=== PATIENT | female | born 1995 | race Two or more races ===

== ENCOUNTER 2022-11-27 22:27 | Observation (INO) | payer MEDICAID, OTHER ==
[~2022-11-27] VITALS: Ht 165.1 cm; Wt 98.4 kg
[2022-11-27] MEDS ORDERED: NITR-52 PO (23:32)
[2022-11-27 23:39] LABS: Urine Bacteria FEW /hpf (None Seen); Urine Blood Negative /uL (Negative); Urine Clarity Clear (Clear); Urine Color Yellow (Yellow); Urine Mucus FEW (None Seen); Urine Protein, UAD TRACE (Negative); Urine Specific Gravity 1.025 (1.001-1.035); Urine Urobilinogen Normal (Negative); Urine WBC 1 /hpf (0 - 5)
[2022-11-27 23:50] LABS: Amphetamine Screen, Urine Neg (NEGATIVE); Barbiturate Scree,Urine Neg (NEGATIVE); Benzodiazephine Screen, Urine Neg (NEGATIVE); Cannabinoid Screen, Urine Neg (NEGATIVE); Cocaine Screen, Urine Neg (NEGATIVE); Opiate Scree,Urine Neg (NEGATIVE); Phencyclidine Screen, Urine Neg (NEGATIVE)
[2022-11-27 23:58] LABS: Fern Testing Negative
[2022-11-28 00:42] LABS: Alanine Aminotransferase 14 U/L (7-40); Albumin 3.6 g/dL (3.2-4.8); Alkaline Phosphatase 173 U/L (46-116); Anion Gap 8 (5-15); Aspartate Aminotransferase 12 U/L (13-40); Bilirubin, Total 0.5 mg/dL (0.2-1.0); Calcium 8.4 mg/dL (8.5-10.1); Carbon Dioxide 20 mmol/L (20-30); Chloride 110 mmol/L (98-107); Glucose 98 mg/dL (74-106); Potassium 3.7 mmol/L (3.5-5.1); Sodium 138 mmol/L (136-145); Total Protein 6.4 g/dL (5.7-8.2)
[2022-11-28 00:47] LABS: BUN/Creatinine Ratio 10.6 (10.0-20.0); Blood Urea Nitrogen < 5 mg/dL (9-23); INR 0.94 (0.9-1.15); Prothrombin Time 9.9 sec (9.3-11.8)
== END 2022-11-28 01:29 | disposition home or self-care (01) ==
LOC: LDRP 22:27
PROVIDERS: ADMIT Obstetrics & Gynecology; ATTEND Obstetrics & Gynecology
DX: O42.92 Full-term premature rupture of membranes, unspecified as to length of time between rupture and onset of labor (principal); O26.893 Other specified pregnancy related conditions, third trimester; M54.50 Low back pain, unspecified; Z79.899 Other long term (current) drug therapy; Z3A.37 37 weeks gestation of pregnancy; Z98.891 History of uterine scar from previous surgery
CPT/HCPCS: 36415; 59025; 76805; 76818; 80053; 80307; 81001; 81002; 84112; 85610; 85730; 94760; G0378; Q0114

== ENCOUNTER 2022-12-04 09:45 | Observation (INO) | payer MEDICAID ==
[~2022-12-04 09:45] MED LIST: NITR-52 PO
[2022-12-04] MEDS ORDERED: PREN-96 PO (10:52)
[2022-12-04 12:11] LABS: Basophils # (auto) 0 10 ^3/uL (0-0.2); Basophils % (auto) 0.4 % (0.0-2.0); Eosinophils # (auto) 0.1 10 ^3/uL (0-0.8); Eosinophils % (auto) 1.3 % (0.0-7.0); Hematocrit 37.5 % (36.0-46.0); Hemoglobin 12.8 g/dL (12.2-16.2); Lymphocytes # (auto) 1.7 10 ^3/uL (0.4-5.4); Lymphocytes % (auto) 23.3 % (10.0-50.0); Mean Corpuscular Hemoglobin 28.7 pg (28.0-32.0); Mean Corpuscular Hgb Conc. 34.2 g/dL (32.0-36.0); Mean Corpuscular Volume 84.1 fL (80.0-100.0); Monocytes # (auto) 0.4 10 ^3/uL (0-1.3); Monocytes % (auto) 5.6 % (0.0-12.0); Neutrophils % (auto) 69.4 % (37.0-80.0); Nucleated Red Blood Cells % 0.1 %; Red Blood Cells 4.46 10^6/uL (4.0-5.20); Red Cell Distribution Width 13.4 % (11.8-14.3); White Blood Cell 7.3 10^3/uL (4.4-10.8)
[2022-12-07 07:06] LABS: RPR Non Reactive (Non Reactive)
== END 2022-12-04 12:03 | disposition home or self-care (01) ==
LOC: LDRP 10:12
PROVIDERS: ADMIT Obstetrics & Gynecology; ATTEND Obstetrics & Gynecology
DX: O24.410 Gestational diabetes mellitus in pregnancy, diet controlled (principal); Z3A.38 38 weeks gestation of pregnancy
CPT/HCPCS: 36415; 59025; 76818; 81002; 82948; 82962; 83036; 85025; 86592; 94760; G0378

== ENCOUNTER 2022-12-08 11:42 | Observation (INO) | payer MEDICAID ==
[~2022-12-08 11:42] MED LIST changes: +PREN-96 PO
== END 2022-12-08 13:54 | disposition home or self-care (01) ==
LOC: LDRP 12:03 → UNDOADMOB 12:03 → LDRP 12:08 → UNDODISOB 13:54
PROVIDERS: ADMIT Obstetrics & Gynecology; ATTEND Obstetrics & Gynecology
DX: O24.419 Gestational diabetes mellitus in pregnancy, unspecified control (principal); O34.219 Maternal care for unspecified type scar from previous cesarean delivery; Z3A.39 39 weeks gestation of pregnancy
CPT/HCPCS: 59025; 76818; 81002; 82948; 82962; 94760; G0378

== ENCOUNTER 2022-12-12 05:00 | Inpatient (IN) | payer MEDICAID ==
[2022-12-11 11:58] LABS: Basophils # (auto) 0 10 ^3/uL (0-0.2); Basophils % (auto) 0.3 % (0.0-2.0); Eosinophils # (auto) 0 10 ^3/uL (0-0.8); Eosinophils % (auto) 0.7 % (0.0-7.0); Hematocrit 35.7 % (36.0-46.0); Lymphocytes # (auto) 1.5 10 ^3/uL (0.4-5.4); Lymphocytes % (auto) 23.1 % (10.0-50.0); Mean Corpuscular Hemoglobin 28.4 pg (28.0-32.0); Mean Corpuscular Hgb Conc. 33.7 g/dL (32.0-36.0); Mean Corpuscular Volume 84.2 fL (80.0-100.0); Monocytes # (auto) 0.4 10 ^3/uL (0-1.3); Monocytes % (auto) 5.9 % (0.0-12.0); Neutrophils # (auto) 4.6 10 ^3/uL (1.6-8.6); Red Blood Cells 4.24 10^6/uL (4.0-5.20); Red Cell Distribution Width 13.7 % (11.8-14.3); White Blood Cell 6.5 10^3/uL (4.4-10.8)
[2022-12-11 12:17] LABS: INR 0.94 (0.9-1.15); Partial Thromboplastin Time 25.7 SEC (24.5-34.5); Prothrombin Time 9.9 sec (9.3-11.8)
[2022-12-11 12:23] LABS: Alanine Aminotransferase 44 U/L (7-40); Albumin 3.5 g/dL (3.2-4.8); Alkaline Phosphatase 200 U/L (46-116); Anion Gap 7 (5-15); Aspartate Aminotransferase 29 U/L (13-40); BUN/Creatinine Ratio 10.2 (10.0-20.0); Blood Urea Nitrogen 5 mg/dL (9-23); Calcium 8.3 mg/dL (8.5-10.1); Carbon Dioxide 22 mmol/L (20-30); Chloride 109 mmol/L (98-107); Glucose 77 mg/dL (74-106); Potassium 3.9 mmol/L (3.5-5.1); Sodium 138 mmol/L (136-145)
[2022-12-11 12:24] LABS: Bilirubin, Total 0.5 mg/dL (0.2-1.0); Total Protein 6.2 g/dL (5.7-8.2)
[~2022-12-12] VITALS: Ht 165.1 cm; Wt 98.9 kg
[2022-12-12] VITALS (12 sets, daily range): BP systolic 98–130; BP diastolic 42–71; PULSE 57–95; RESP 15–16; TEMP 97.7–98.7; O2SAT 92–98
[2022-12-12] MEDS ORDERED: DERMOPLAST 60ML BOTTLE TOP PRN (05:45)
[2022-12-12] MEDS ORDERED: ceFAZolin 2 GM/D5W100ml 100 ML IV ONE (05:45)
[2022-12-12] MEDS ORDERED: BUTORPHANOL TARTRATE 2 MG/1 ML VIAL IV PRN ×2 (05:45)
[2022-12-12] MEDS ORDERED: PHISODERM TOP SOLN 240ML BTL TOP PRN (05:45)
[2022-12-12] MEDS ORDERED: LACTATED RINGER'S 1,000 ML IV ONE (05:45)
[2022-12-12] MEDS ORDERED: WITCH HAZEL-GLYCERIN PAD TOP PRN (05:45)
[2022-12-12] MEDS ORDERED: PROMETHAZINE HCL 25 MG/ML 1ML IV PRN (05:45)
[2022-12-12] MEDS ORDERED: MORPHINE SULF PF 5 MG/10 ML VIAL ONE (06:50)
[2022-12-12] MEDS ORDERED: fentaNYL CITRATE 100 MCG/2 ML VL ONE (06:50)
[2022-12-12] MEDS ORDERED: DexAMETHasone SOD PHOS 10MG/1ML VIAL INJ ONE (06:50)
[2022-12-12] MEDS ORDERED: oxyTOCIN 10 UNIT/ML 10ML VIAL ONE (06:50)
[2022-12-12] MEDS ORDERED: ONDANSETRON HCL 4 MG/2 ML VIAL ONE (06:50)
[2022-12-12] MEDS: LACTATED RINGER'S 1,000 ML IV SCH ×2 (07:21→11:12)
[2022-12-12] MEDS ORDERED: ceFAZolin 1GM/50ML 50 ML IV SCH (07:30)
[2022-12-12] MEDS ORDERED: ONDANSETRON HCL 4 MG/2 ML VIAL IV PRN ×2 (07:30→08:45)
[2022-12-12] MEDS ORDERED: LACT. RINGERS/OXYTOCIN 20UNITS 1,000 ML IV ONE (07:30)
[2022-12-12] MEDS ORDERED: GUM (CHEWING) 1 GUM CHEW CHEW ONE (07:30)
[2022-12-12 07:49] LABS: Amphetamine Screen, Urine Neg (NEGATIVE)
[2022-12-12 07:50] LABS: Barbiturate Scree,Urine Neg (NEGATIVE); Benzodiazephine Screen, Urine Neg (NEGATIVE); Cannabinoid Screen, Urine Neg (NEGATIVE); Cocaine Screen, Urine Neg (NEGATIVE); Opiate Scree,Urine Neg (NEGATIVE); Phencyclidine Screen, Urine Neg (NEGATIVE)
[2022-12-12] MEDS ORDERED: CEPH500C PO (08:04)
[2022-12-12] MEDS ORDERED: HYDR-4902 PO (08:04)
[2022-12-12] MEDS ORDERED: DOCU-94 PO (08:04)
[2022-12-12 08:07] LABS: Urine Bacteria FEW /hpf (None Seen); Urine Blood 1+ /uL (Negative); Urine Budding Yeast OCCASIONAL /hpf (None Seen); Urine Clarity Clear (Clear); Urine Color Yellow (Yellow); Urine Hyphae Yeast PRESENT /hpf; Urine Mucus FEW (None Seen); Urine Protein, UAD TRACE (Negative); Urine Specific Gravity 1.022 (1.001-1.035); Urine Urobilinogen Normal (Negative); Urine WBC 3 /hpf (0 - 5); Urine pH 6.5 (5.0-8.0)
[2022-12-12] MEDS ORDERED: diphenhdrAMINE HCL 50 MG/1 ML VL IV PRN (08:45)
[2022-12-12] MEDS ORDERED: HYDROmorphone HCL 2 MG/ML VL/or syr IV PRN (08:45)
[2022-12-12] MEDS ORDERED: NALBUPHINE HCL 10 MG/1ml INJECTION IV ONE (08:45)
[2022-12-12] MEDS ORDERED: NALOXONE HCL 0.4 MG/ML VIAL IV PRN (08:45)
[2022-12-12] MEDS: ceFAZolin 1GM/50ML 50 ML IV SCH ×2 (15:42→23:27)
[2022-12-12] MEDS: ACETAMINOPHEN IV 1000 MG/100ML (10MG/ML) IV PRN (16:27)
[2022-12-12 21:22] LABS: Basophils # (auto) 0.1 10 ^3/uL (0-0.2); Eosinophils # (auto) 0 10 ^3/uL (0-0.8); Eosinophils % (auto) 0.1 % (0.0-7.0); Hematocrit 34.5 % (36.0-46.0); Hemoglobin 11.5 g/dL (12.2-16.2); Lymphocytes # (auto) 2.1 10 ^3/uL (0.4-5.4); Lymphocytes % (auto) 16.6 % (10.0-50.0); Mean Corpuscular Hemoglobin 27.9 pg (28.0-32.0); Mean Corpuscular Hgb Conc. 33.4 g/dL (32.0-36.0); Mean Corpuscular Volume 83.6 fL (80.0-100.0); Monocytes # (auto) 0.7 10 ^3/uL (0-1.3); Monocytes % (auto) 5.3 % (0.0-12.0); Neutrophils # (auto) 9.7 10 ^3/uL (1.6-8.6); Red Blood Cells 4.13 10^6/uL (4.0-5.20); Red Cell Distribution Width 13.4 % (11.8-14.3); White Blood Cell 12.5 10^3/uL (4.4-10.8)
[2022-12-13] VITALS (11 sets, daily range): BP systolic 97–118; BP diastolic 43–78; PULSE 64–77; RESP 15–16; TEMP 98–98.4; O2SAT 94–98
[2022-12-13 07:09] LABS: Basophils # (auto) 0 10 ^3/uL (0-0.2); Basophils % (auto) 0.4 % (0.0-2.0); Eosinophils # (auto) 0 10 ^3/uL (0-0.8); Eosinophils % (auto) 0.4 % (0.0-7.0); Hematocrit 34.1 % (36.0-46.0); Hemoglobin 11.3 g/dL (12.2-16.2); Lymphocytes # (auto) 2.8 10 ^3/uL (0.4-5.4); Lymphocytes % (auto) 28.3 % (10.0-50.0); Mean Corpuscular Hemoglobin 27.9 pg (28.0-32.0); Mean Corpuscular Hgb Conc. 33.2 g/dL (32.0-36.0); Mean Corpuscular Volume 83.8 fL (80.0-100.0); Monocytes # (auto) 0.6 10 ^3/uL (0-1.3); Monocytes % (auto) 6.2 % (0.0-12.0); Neutrophils # (auto) 6.4 10 ^3/uL (1.6-8.6); Neutrophils % (auto) 64.7 % (37.0-80.0); Red Blood Cells 4.06 10^6/uL (4.0-5.20); Red Cell Distribution Width 13.7 % (11.8-14.3); White Blood Cell 9.9 10^3/uL (4.4-10.8)
[2022-12-13] MEDS: ceFAZolin 1GM/50ML 50 ML IV SCH (07:35)
[2022-12-13] MEDS: ACETAMINOPHEN IV 1000 MG/100ML (10MG/ML) IV PRN (08:46)
[2022-12-13] MEDS ORDERED: BISACODYL 10 MG RECT SUPP PR PRN (15:45)
[2022-12-13] MEDS ORDERED: HYDROcodone-ACET 5/325MG TAB PO PRN ×2 (15:45)
[2022-12-13] MEDS: DOCUSATE SOD 100 MG CAP PO SCH (21:52)
[2022-12-13] MEDS: IBUPROFEN 800 MG TAB PO PRN (21:53)
[2022-12-14 03:10] VITALS: BP 110/62; PULSE 67; RESP 16; TEMP 97.7; O2SAT 97
[2022-12-14 07:05] VITALS: BP 119/75; PULSE 73; RESP 17; TEMP 98.2
[2022-12-14 07:06] LABS: RPR Non Reactive (Non Reactive)
[2022-12-14] MEDS: DOCUSATE SOD 100 MG CAP PO SCH (09:46)
[2022-12-14] MEDS: IBUPROFEN 800 MG TAB PO PRN (09:46)
[2022-12-14] MEDS ORDERED: DOCUSATE CALCIUM 240 MG CAP PO SCH (10:00)
[2022-12-14 11:08] VITALS: BP 115/77; PULSE 68; RESP 16; TEMP 97.8; O2SAT 98
[2022-12-14 22:06] LABS: Treponema pallidum Ab (FTA-Ab) Non Reactive (Non Reactive)
== END 2022-12-14 14:00 | disposition home or self-care (01) | DRG 540 ==
LOC: UNDOADMIN 05:00 → LDRP 05:00
PROVIDERS: ADMIT Obstetrics & Gynecology; ATTEND Obstetrics & Gynecology
PROC: 10D00Z1 Extraction of Products of Conception, Low, Open Approach (ICD-10-PCS; principal; 2022-12-12 07:25)
DX: O34.211 Maternal care for low transverse scar from previous cesarean delivery (principal); O24.429 Gestational diabetes mellitus in childbirth, unspecified control; E66.01 Morbid (severe) obesity due to excess calories; O99.214 Obesity complicating childbirth; Z3A.39 39 weeks gestation of pregnancy; Z37.0 Single live birth
CPT/HCPCS: 36415; 59025; 80053; 80307; 81001; 82962; 85025; 85610; 85730; 86592; 86850; 86900; 86901; 94762; 96360; 96361; 96365; 96366; G0378; J0131; J0690; J1100; J2405; J2590

== ENCOUNTER 2023-04-16 02:00 | Emergency (ER) | payer MEDICAID ==
[~2023-04-16] VITALS: Ht 165.1 cm; Wt 90.0 kg
[~2023-04-16 02:00] MED LIST changes: +CEPH500C PO; +DOCU-94 PO; +HYDR-4902 PO
[2023-04-16 02:22] VITALS: BP 106/71; PULSE 91; RESP 18; TEMP 100.3; O2SAT 97
[2023-04-16] MEDS ORDERED: VANCOMYCIN 1GM/200ML 200 ML IV ONE (02:45)
[2023-04-16] MEDS ORDERED: CEPH500C PO (02:48)
[2023-04-16] MEDS: CEPHALEXIN 250 MG CAP PO ONE (03:57)
[2023-04-16] MEDS: ACETAMINOPHEN 325 MG TAB PO ONE (03:59)
== END 2023-04-16 05:57 | disposition home or self-care (01) ==
LOC: ER 02:00
DX: N64.4 Mastodynia (principal); N61.0 Mastitis without abscess; Z79.899 Other long term (current) drug therapy

== ENCOUNTER 2024-08-25 22:34 | Inpatient (IN) | payer MEDICAID ==
[~2024-08-25] VITALS: Ht 165.1 cm; Wt 69.3 kg
[2024-08-25 23:22] LABS: Hematocrit 41.6 % (36.0-46.0); Hemoglobin 14.4 g/dL (12.2-16.2); Mean Corpuscular Hemoglobin 29.7 pg (28.0-32.0); Mean Corpuscular Volume 86.0 fL (80.0-100.0); Nucleated Red Blood Cells % 0.0 %
[2024-08-25 23:41] LABS: Alanine Aminotransferase 38 U/L (7-40); Albumin 4.6 g/dL (3.2-4.8); Alkaline Phosphatase 109 U/L (46-116); Anion Gap 7 (5-15); BUN/Creatinine Ratio 13.8 (10.0-20.0); Bilirubin, Total 0.5 mg/dL (0.2-1.0); Blood Urea Nitrogen 11 mg/dL (9-23); Calcium 8.9 mg/dL (8.7-10.4); Carbon Dioxide 26 mmol/L (20-31); Chloride 106 mmol/L (98-107); Lipase 34 U/L (12-53); Potassium 4.0 mmol/L (3.5-5.1); Sodium 139 mmol/L (136-145); Total Protein 7.4 g/dL (5.7-8.2)
[2024-08-25 23:47] LABS: Glucose 126 mg/dL (74-106)
--- NOTE | 2024-08-25 23:47 | ED.PDOC ---
History of Present Illness HPI Comments 28 y/o Barbadian speaking F presents with c/c nonradiating, RUQ abdominal pain. Patient endorses on sudden and unprovoked onset of pain 20x minutes prior to arrival. Pain is waning in quality. No relief when self-induced vomit, earlier. Only significant history of C-sections. Still has gallbladder. Denies any nausea, vomiting, diarrhea, urinary symptoms, fever, chills, or further associated symptoms. 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 Hydrocodone-Acetaminophen (Hydrocodone Bitartrate/AC 5-325 mg) 1 Tab Tab, 1 TAB PO Q6HPRN PRN for 6 Days, #24 TAB Prov:DANAE BARNETT DO 12/12/22 Docusate Sodium (Colace) 100 Mg Cap, 1 CAP PO BID, #60 CAP 2 Refills Prov:DANAE BARNETT DO 12/12/22 Cephalexin Monohydrate (Cephalexin) 500 Mg Cap, 500 MG PO QID for 7 Days, CAP Prov:DANAE BARNETT DO 12/12/22 Reported Medications Vit W/ Ferrous Fumara ( One Daily) Daily Tab, 1 TAB PO DAILY, #30 TAB 11 Refills 12/04/22 Nitrofurantoin (Nitrofurantoin) 100 Mg Cap, 100 MG PO BID for 10 Days, CAP 11/27/22 Information Source: Patient Mode of Arrival: Ambulatory Severity: Moderate Timing: Minutes Duration: Since onset Prehospital treatment: None Past Medical History PAST MEDICAL HISTORY: Denies Surgical History: Denies all surgeries 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: No Pertinent 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 History Social History Smoker: Non-Smoker Alcohol: Denies ETOH Use Drugs: Denies Drug Use Lives In: Home All Other Systems: Reviewed and Negative (Comprehensive systems review obtained and negative except for what is stated in the HPI.) Physical Exam General Appearance: No Apparent Distress, Obese HEENT: Normal ENT Inspection, Pharynx Normal, TMs Normal Neck: Full Range of Motion, Non-Tender, Normal, Normal Inspection Respiratory: Chest Non-Tender, Lungs Clear, No Accessory Muscle Use, No Respiratory Distress, Normal Breath Sounds Cardiovascular: No Edema, No JVD, No Murmur, No Gallop, Normal Peripheral Pulses, Regular Rate/Rhythm Breast Exam: Deferred Gastrointestinal: No Organomegaly, No Pulsatile Mass, Normal Bowel Sounds, RUQ (tenderness ), Soft, Tenderness (RUQ) Genitalia: Deferred Pelvic: Deferred Rectal: Deferred Extremities: No calf tenderness, Normal capillary refill, Normal inspection, Normal range of motion, Non-tender, No pedal edema Musculoskeletal : Apperance: Normal Neurologic: Alert, administrative operations coordinator II-XII nml as Tested, No Motor Deficits, Normal Affect, Normal Mood, No Sensory Deficits Cerebellar Function: Normal Reflexes: Normal Skin: Dry, Normal Color, Warm Lymphatic: No Adenopathy Was a procedure done? Was a procedure done?: No Differential Dx Considerations may include: gastritis, gastroenteritis, viral syndrome, GERD, PUD, cholecystitis, cholelithiasis, among others X-Ray, Labs, Meds, VS Vital Signs Date Time Temp Pulse Resp B/P (MAP) Pulse Ox O2 Delivery O2 Flow Rate FiO2 08/25/24 23:00 98.8 79 18 121/68 (85) 98 98.8 Lab Test 08/25/24 23:49 08/25/24 23:13 Range/Units Urine Color Light-yellow Yellow Urine Clarity Clear Clear Urine pH 6.0 5.0-9.0 Urine Specific Western 1.023 1.001-1.035 Urine Protein Negative Negative Urine Ketones Negative Negative Urine Blood Negative Negative /uL Urine Nitrite Negative Negative Urine Bilirubin Negative Negative Urine Urobilinogen Normal Negative mg/dL Urine Leukocyte Esterase 2+ Negative /uL Urine RBC 1 0 - 4 /hpf Urine Microscopic WBC 3 0-5 /HPF Urine Squamous Epithelial Cells Few <5 /hpf Urine Bacteria None seen None Seen /hpf Urine Mucus Few None Seen Urine Glucose Normal Normal mg/dL White Blood Count 9.8 4.4-10.8 10^3/uL Red Blood Count 4.84 4.0-5.20 10^6/uL Hemoglobin 14.4 12.2-16.2 g/dL Hematocrit 41.6 36.0-46.0 % Mean Corpuscular Volume 86.0 80.0-100.0 fL Mean Corpuscular Hemoglobin 29.7 28.0-32.0 pg Mean Corpuscular Hemoglobin Concent 34.5 32.0-36.0 g/dL Red Cell Distribution Width 12.9 11.8-14.3 % Platelet Count 196 140-450 10^3/uL Mean Platelet Volume 9.4 6.9-10.8 fL Neutrophils (%) (Auto) 69.7 37.0-80.0 % Lymphocytes (%) (Auto) 23.6 10.0-50.0 % Monocytes (%) (Auto) 4.9 0.0-12.0 % Eosinophils (%) (Auto) 1.4 0.0-7.0 % Basophils (%) (Auto) 0.4 0.0-2.0 % Neutrophils # (Auto) 6.9 1.6-8.6 10 ^3/uL Lymphocytes # (Auto) 2.3 0.4-5.4 10 ^3/uL Monocytes # (Auto) 0.5 0-1.3 10 ^3/uL Eosinophils # (Auto) 0.1 0-0.8 10 ^3/uL Basophils # (Auto) 0 0-0.2 10 ^3/uL Nucleated Red Blood Cells 0.0 % Sodium Level 139 136-145 mmol/L Potassium Level 4.0 3.5-5.1 mmol/L Chloride Level 106 98-107 mmol/L Carbon Dioxide Level 26 20-31 mmol/L Anion Gap 7 5-15 Blood Urea Nitrogen 11 9-23 mg/dL Creatinine 0.80 0.550-1.02 mg/dL Glomerular Filtration Rate Calc 102 >90 mL/min BUN/Creatinine Ratio 13.8 10.0-20.0 Serum Glucose 126 H 74-106 mg/dL Calcium Level 8.9 8.7-10.4 mg/dL Total Bilirubin 0.5 0.2-1.0 mg/dL Aspartate Amino Transferase (AST) 52 H 13-40 U/L Alanine Aminotransferase (ALT) 38 7-40 U/L Alkaline Phosphatase 109 46-116 U/L Total Protein 7.4 5.7-8.2 g/dL Albumin 4.6 3.2-4.8 g/dL Lipase 34 12-53 U/L PATIENT: PIERRE TOMLIN MIRIAM ACCT: [id number] UNIT: [id number] : 1995 LOC: ER ROOM / BED: / AGE / SEX: 28 / F ADM STATUS: REG ER SERVICE 05 ORDERING PHYSICIAN: KAISER PEREZ MD PROCEDURE(s): GBUS - GALLBLADDER REASON: RUQ pain ORDER NUMBER(s): [id number], ACCESSION NUMBER(s): [id number] RIGHT UPPER QUADRANT ABDOMINAL ULTRASOUND CLINICAL HISTORY: RUQ pain COMPARISON: None TECHNIQUE: Grayscale and color Doppler ultrasound imaging of the right upper quadrant is performed. FINDINGS: Pancreas: Obscured by artifact from bowel gas. Liver: Increased hepatic parenchymal echogenicity. No discrete Hepatic lesions as visualized. The portal vein appears patent. Gallbladder: Stone filled in distended gallbladder with wall thickening to approximately 5.6 mm. Common bile duct: Dilated to approximately 7 mm. Distal portions are not visualized. Right Kidney: Measures 11 cm in length. No hydronephrosis. Right upper quadrant Inferior vena cava: Visualized portions are grossly patent. IMPRESSION: Artifactually limited examination. Cholelithiasis with gallbladder wall thickening. Findings suggest cholecystitis. HIDA scan may be obtained to further evaluate. Increased hepatic parenchymal echogenicity which is most commonly seen with fatty infiltration. HS:Y Time of 1ST Reevaluation: 23:30 Reevaluation 1ST: Unchanged Patient Education/Counseling: Diagnosis, Treatment, Need For Follow Up Family Education/Counseling: No Family Present SEPSIS Sepsis Screen Date sepsis recognized/suspect: Aug 25, 2024 Time Sepsis recognized/suspect: 2299 Recent Procedure: No On Antibiotic Therapy: No Respiratory Rate >20: No Heart Rate >90: No Temp<36 C (96.8 F) or >38.3 C: No SBP <90 or MAP <65 mmHG: No New Acute Mental Status Change: No Is the patient on CPAP, BIPAP,: No Physician Orders Gallbladder (08/25/24 23:06) Piperacillin-Tazob 3.375gm (Zosyn 3.375g (08/26/24 02:30) Vital Signs Date Time Temp Pulse Resp B/P (MAP) Pulse Ox O2 Delivery O2 Flow Rate FiO2 08/25/24 23:00 98.8 79 18 121/68 (85) 98 98.8 Laboratory Tests Test 08/25/24 23:13 White Blood Count 9.8 10^3/uL (4.4-10.8) Departure 1 Departure Time of Disposition: 02:27 Impression: Primary Impression: Acute cholecystitis Additional Impression: UTI (urinary tract infection) Disposition: ADMITTED INPATIENT Condition: Guarded Discharged With: Self Comments Right Upper Quadrant Abdominal Pain Chief Complaint: Right upper quadrant abdominal pain for 1 hour History of Present Illness: Patient is a 28-year-old female who presents to the Emergency Department with acute onset of right upper quadrant abdominal pain that began approximately one hour prior to arrival. The pain is described as sharp in nature. She reports associated symptoms of nausea and has experienced some vomiting. She appears uncomfortable during the examination. The patient is tender to palpation in the epigastric area and right upper quadrant. Laboratory studies reveal mildly elevated liver enzymes with AST of 52, while ALT is within normal limits at 38. Urinalysis shows 2+ leukocytes, suggestive of a urinary tract infection. Abdominal ultrasound demonstrates gallstones with gallbladder wall thickening consistent with early acute cholecystitis. Review of Systems: Constitutional: Patient appears uncomfortable. Gastrointestinal: Positive for right upper quadrant abdominal pain, nausea, and vomiting. Negative for diarrhea, constipation, or change in bowel habits. Genitourinary: Positive for leukocytes in urine, suggesting urinary tract infection. All other systems: Not specifically addressed in the bleacher kraft pulp. Medications: Current medications: None documented Medications administered in ED: Zosyn (piperacillin-tazobactam) Vital Signs: No vital signs documented in the bleacher kraft pulp Physical Exam: General: Patient appears uncomfortable Abdomen: Tenderness to palpation in the epigastric area and right upper quadrant Other systems: Not specifically addressed in the bleacher kraft pulp Lab Results: Liver Function Tests: - AST: 52 (slightly elevated) - ALT: 38 (normal) - Total Bilirubin: 0.5 (normal) Pancreatic Enzymes: - Lipase: 34 (normal) Complete Blood Count: - WBC: 9.8 (normal) Urinalysis: - Leukocytes: 2+ (abnormal) Imaging and Other Relevant Results: Abdominal Ultrasound: - Gallstones present - Gallbladder wall thickening noted - Findings consistent with early acute cholecystitis Medical Decision Making: Summary Statement: 28-year-old female presenting with acute onset right upper quadrant pain, nausea, and vomiting. Diagnostic studies reveal gallstones with gallbladder wall thickening on ultrasound and evidence of urinary tract infection on urinalysis. Problem List: 1. Acute cholecystitis, 2. Cholelithiasis, 3. Urinary tract infection, 4. Right upper quadrant abdominal pain, 5. Nausea and vomiting Differential Diagnosis: Acute cholecystitis, biliary colic, choledocholithiasis, acute hepatitis, peptic ulcer disease, gastritis, pancreatitis, pyelonephritis, right-sided pneumonia with referred pain ED Course: Patient presented with acute RUQ pain. Laboratory studies and imaging were obtained. Ultrasound confirmed gallstones with gallbladder wall thickening consistent with acute cholecystitis. Urinalysis revealed leukocytes suggestive of UTI. Patient was administered Zosyn for broad-spectrum antibiotic coverage. Decision made to admit for management of acute cholecystitis and urinary tract infection. Assessment and Plan: 1. Acute Cholecystitis with Cholelithiasis: - Admit to inpatient service for further management - Continue IV antibiotics (Zosyn initiated in ED) - NPO status - IV fluid hydration - Pain management as needed - Surgical consultation for possible cholecystectomy - Monitor liver function tests 2. Urinary Tract Infection: - Continue antibiotic therapy - Encourage oral hydration when appropriate - Urine culture results pending - Reassess symptoms during admission 3. Nausea/Vomiting: - Antiemetic medications as needed - Monitor intake and output 4. Disposition: Admit to inpatient service with surgical consultation Additional Notes: Patient admitted for acute cholecystitis and urinary tract infection Billing Information: ICD-10: K81.0 - Acute cholecystitis ICD-10: N39.0 - Urinary tract infection, site not specified ICD-10: K80.20 - Calculus of gallbladder without cholecystitis ICD-10: R10.11 - Right upper quadrant pain Critical Care Note Critical Care Time?: No Stability Stability form required: No Heart Score Heart Score: Heart Score Response (Comments) Value History N/A 0 EKG N/A 0 Age N/A 0 Risk Factors N/A 0 Troponin N/A 0 Total 0 I personally scribed for KAISER PEREZ MD ([email or web address]) on 08/25/24 at 23:47. Electronically submitted by Jerman Ramos ([email or web address]). I personally scribed for KAISER PEREZ MD ([email or web address]) on 08/26/24 at 01:51. El ectronically submitted by Jagjit Ceja ([email or web address]). KAISER PEREZ MD Aug 25, 2024 23:47
[2024-08-26 00:24] LABS: Urine Protein, UAD Negative (Negative)
--- NOTE | 2024-08-26 01:48 | DVH ---
RIGHT UPPER QUADRANT ABDOMINAL ULTRASOUND CLINICAL HISTORY: RUQ pain COMPARISON: None TECHNIQUE: Grayscale and color Doppler ultrasound imaging of the right upper quadrant is performed. FINDINGS: Pancreas: Obscured by artifact from bowel gas. Liver: Increased hepatic parenchymal echogenicity. No discrete Hepatic lesions as visualized. The p ortal vein appears patent. Gallbladder: Stone filled in distended gallbladder with wall thickening to approximately 5.6 mm. Common bile duct: Dilated to approximately 7 mm. Distal portions are not visualized. Right Kidney: Measures 11 cm in length. No hydronephrosis. Right upper quadrant Inferior vena cava: Visualized portions are grossly patent. IMPRESSION: Artifactually limited examination. Cholelithiasis with gallbladder wall thickening. Findings suggest cholecystitis. HIDA scan may be ob tained to further evaluate. Increased hepatic parenchymal echogenicity which is most commonly seen with fatty infiltration. HS:Y
[2024-08-26] MEDS ORDERED: HYDROcodone-ACET 5/325MG TAB PO PRN (04:45)
[2024-08-26] MEDS ORDERED: ONDANSETRON HCL 4 MG/2 ML VIAL IV PRN (04:45)
[2024-08-26] MEDS ORDERED: ACETAMINOPHEN 325 MG TAB PO PRN (04:45)
[2024-08-26] MEDS: ONDANSETRON HCL 4 MG/2 ML VIAL IV ONE (05:08)
[2024-08-26] MEDS: KETOROLAC TROMETH 30 MG/ML 1ML VIAL IV ONE (05:09)
[2024-08-26] MEDS: PIPERACILLIN-TAZOB 3.375GM 100 ML IV ONE (05:10)
[2024-08-26] MEDS: HYDROmorphone HCL 2 MG/ML VL/or syr IV ONE (05:10)
--- NOTE | 2024-08-26 05:16 | DVHHPRES ---
History of Present Illness Resident Creating Document: ISAMAR GREENWOOD RESIDENT Reason for Visit: acute cholecystitis with cholelithiasis and urinary tract infection History of Present Illness This is a 28-year-old Estonian-speaking female presenting from the Emergency Department with acute-onset right upper quadrant abdominal pain, which began spontaneously around 1011 p.m. the prior night. The pain was sharp, non- radiating, and unrelieved by vomiting or rest. She reports intermittent postprandial abdominal pain in the past that subsided within two hours of eating, but denies previous episodes this severe. She has experienced nausea but no vomiting, diarrhea, dysuria, hematuria, or fever. She retains her gallbladder. Her past medical history is significant for gestational diabetes, but no known history of gallstones or hepatobiliary disease. Her surgical history includes three prior C-sections. She is uncertain of her current status. On examination, she appeared uncomfortable with epigastric and RUQ tenderness. Laboratory results reveal mildly elevated AST (52) and elevated ALP (109), with normal bilirubin and lipase, and WBC 9.8. Urinalysis shows 2+ leukocyte esterase and 3 WBCs, concerning for possible urinary tract infection. RUQ ultrasound revealed cholelithiasis, gallbladder wall thickening (~5.6 mm), and CBD dilation (7 mm), consistent with acute cholecystitis. Given ultrasound-confirmed cholecystitis, concern for UTI, and abdominal pain, we are admitting the patient for IV antibiotics, surgical evaluation for possible cholecystectomy, supportive care, and assessment. Past Medical History Gestational diabetes (resolved ) Past Surgical History section 3 Family History Non-contributory Past Social History Tobacco: Denies Alcohol: Denies Illicit drugs: Denies Sexual activity: Active; unsure about Review of Systems Review of Systems Constitutional: Uncomfortable, no fever, chills, or night sweats. GI: Positive for RUQ pain and nausea. No vomiting, diarrhea, melena, hematemesis. : No dysuria, hematuria, frequency; +leukocytes on UA. Neuro: Alert, no focal deficits. Other systems: Non-contributory. Constitutional: No: Fever, Chills, Sweats, Weakness, Malaise, Other Respiratory: No: Cough, Dry, Shortness of breath, SOB with excertion, Wheezing, Hemoptysis, Pleuritic Pain, Sputum, Wheezing, Other Cardiovascular: No: Chest Pain, Palpitations, Orthopnea, Paroxysmal Noc. Dyspnea, Edema, Lt Headedness, Other Gastrointestinal: No: Nausea, Vomiting, Abdominal Pain, Diarrhea, Constipation, Melena, Hematochezia, Other Genitourinary: No Dysuria, No Frequency, No Incontinence, No Hematuria, No Retention, No Other Musculoskeletal: No: other, neck pain, shoulder pain, arm pain, back pain, hand pain, leg pain, foot pain Skin: No: Rash, Lesions, Jaundice, Bruising, Other Neurological: No: Weakness, Numbness, Incoordination, Change in speech, Confusion, Seizures, Other Allergies: Coded Allergies: NO KNOWN ALLERGIES (Unverified , 11/27/22) Medications Current Medications Medications Dose Ordered Sig/[place] Route Start Time Stop Time Status Last Admin Dose Admin Acetaminophen 650 mg Q6HP PRN PO 08/26/24 04:45 UNV Acetaminophen/ Hydrocodone Bitart 1 tab Q4HP PRN PO 08/26/24 04:45 UNV Ondansetron HCl 4 mg Q4HP PRN IV 08/26/24 04:45 UNV Piperacillin Sod/ Tazobactam Sod 100 ml @ 100 mls/hr Q6HR IV 08/26/24 06:00 UNV Exam Vital Signs Vital Signs Date Time Temp Pulse Resp B/P (MAP) Pulse Ox O2 Delivery O2 Flow Rate FiO2 08/25/24 23:00 98.8 79 18 121/68 (85) 98 98.8 Exam General: Appears uncomfortable, lying still Abdomen: Soft, tender to palpation in epigastric and RUQ regions. No guarding or rebound. General Appearance: Alert, Oriented X3, Cooperative, severe distress HEENT: Atraumatic, PERRLA, EOMI, Mucous membr. moist/pink Respiratory: Clear to auscultation, Normal air movement Cardiovascular: Regular rate, Normal S1, Normal S2, No murmurs, Gallops, Rubs Abdominal: Normal bowel sounds Extremities: No clubbing, No cyanosis, No edema, Normal pulses, No tenderness/swelling Skin: No rashes, No breakdown, No significant lesion Neuro: Normal gait, Normal speech, Strength at 5/5 X4 ext, Normal tone, Sensation intact, Cranial nerves 3-12 NL, Reflexes 2+ Psych/Mental Status: Mental status NL, Mood NL Labs/Xrays Labs Test 08/25/24 23:49 08/25/24 23:13 Range/Units Urine Color Light-yellow Yellow Urine Clarity Clear Clear Urine pH 6.0 5.0-9.0 Urine Specific [place] 1.023 1.001-1.035 Urine Protein Negative Negative Urine Ketones Negative Negative Urine Blood Negative Negative /uL Urine Nitrite Negative Negative Urine Bilirubin Negative Negative Urine Urobilinogen Normal Negative mg/dL Urine Leukocyte Esterase 2+ Negative /uL Urine RBC 1 0 - 4 /hpf Urine Microscopic WBC 3 0-5 /HPF Urine Squamous Epithelial Cells Few <5 /hpf Urine Bacteria None seen None Seen /hpf Urine Mucus Few None Seen Urine Glucose Normal Normal mg/dL White Blood Count 9.8 4.4-10.8 10^3/uL Red Blood Count 4.84 4.0-5.20 10^6/uL Hemoglobin 14.4 12.2-16.2 g/dL Hematocrit 41.6 36.0-46.0 % Mean Corpuscular Volume 86.0 80.0-100.0 fL Mean Corpuscular Hemoglobin 29.7 28.0-32.0 pg Mean Corpuscular Hemoglobin Concent 34.5 32.0-36.0 g/dL Red Cell Distribution Width 12.9 11.8-14.3 % Platelet Count 196 140-450 10^3/uL Mean Platelet Volume 9.4 6.9-10.8 fL Neutrophils (%) (Auto) 69.7 37.0-80.0 % Lymphocytes (%) (Auto) 23.6 10.0-50.0 % Monocytes (%) (Auto) 4.9 0.0-12.0 % Eosinophils (%) (Auto) 1.4 0.0-7.0 % Basophils (%) (Auto) 0.4 0.0-2.0 % Neutrophils # (Auto) 6.9 1.6-8.6 10 ^3/uL Lymphocytes # (Auto) 2.3 0.4-5.4 10 ^3/uL Monocytes # (Auto) 0.5 0-1.3 10 ^3/uL Eosinophils # (Auto) 0.1 0-0.8 10 ^3/uL Basophils # (Auto) 0 0-0.2 10 ^3/uL Nucleated Red Blood Cells 0.0 % Sodium Level 139 136-145 mmol/L Potassium Level 4.0 3.5-5.1 mmol/L Chloride Level 106 98-107 mmol/L Carbon Dioxide Level 26 20-31 mmol/L Anion Gap 7 5-15 Blood Urea Nitrogen 11 9-23 mg/dL Creatinine 0.80 0.550-1.02 mg/dL Glomerular Filtration Rate Calc 102 >90 mL/min BUN/Creatinine Ratio 13.8 10.0-20.0 Serum Glucose 126 H 74-106 mg/dL Calcium Level 8.9 8.7-10.4 mg/dL Total Bilirubin 0.5 0.2-1.0 mg/dL Aspartate Amino Transferase (AST) 52 H 13-40 U/L Alanine Aminotransferase (ALT) 38 7-40 U/L Alkaline Phosphatase 109 46-116 U/L Total Protein 7.4 5.7-8.2 g/dL Albumin 4.6 3.2-4.8 g/dL Lipase 34 12-53 U/L SEPSIS Sepsis Screen Date sepsis recognized/suspect: Aug 25, 2024 Time Sepsis recognized/suspect: 2299 Recent Procedure: No On Antibiotic Therapy: No Respiratory Rate >20: No Heart Rate >90: No Temp<36 C (96.8 F) or >38.3 C: No SBP <90 or MAP <65 mmHG: No New Acute Mental Status Change: No Is the patient on CPAP, BIPAP,: No Physician Orders Gallbladder (08/25/24 23:06) Admit (08/26/24 04:39) Code Status (08/26/24 04:39) Vital Signs .PER UNIT PROTOCOL (08/26/24 04:39) Review Orders With Adm. (08/26/24 04:39) Encourage Activity As Tolerate (08/26/24 04:39) Npo (Nothing By Mouth) Diet (08/26/24 Breakfast) Acetaminophen Tablet (Tylenol Tablet) (08/26/24 04:45) Notify Md Of Changes From Base (08/26/24 04:39) Advance Directive (08/26/24 04:39) Urinalysis (08/26/24 04:39) Complete Blood Count (08/26/24 04:39) Blood Culture (08/26/24 04:39) Urine Bacterial Culture (08/26/24 04:39) Patient Condition (08/26/24 04:39) Allergies (08/26/24 04:39) Hydrocodone-Acet 5/325mg Tab ([place] 5/32 (08/26/24 04:45) Ondansetron Hcl (Zofran) (08/26/24 04:45) Drug Screen (08/26/24 04:39) Hemoglobin A1c (08/26/24 04:39) Sequential Compression Device (08/26/24 ) Test, Urine (08/26/24 04:39) * Surgical Consult (08/26/24 ) Zosyn Extended Infusion (08/26/24 06:00) Comprehensive Metabolic Panel (08/26/24 04:39) Pantoprazole (Protonix) (08/26/24 04:45) Vital Signs Date Time Temp Pulse Resp B/P (MAP) Pulse Ox O2 Delivery O2 Flow Rate FiO2 08/25/24 23:00 98.8 79 18 121/68 (85) 98 98.8 Laboratory Tests Test 08/25/24 23:13 White Blood Count 9.8 10^3/uL (4.4-10.8) Assessment/Plan Assessment/Plan Acute cholecystitis with cholelithiasis * Confirmed by RUQ ultrasound (GB wall thickening, stones, distension). * Clinical signs: RUQ pain, nausea, mild LFT elevations. * Rule-out choledocholithiasis pending further evaluation. * Requires IV antibiotics, NPO status, surgical consult for potential cholecystectomy. Urinary tract infection * UA positive for leukocyte esterase and WBCs. * No urinary symptoms, but subclinical UTI suspected. * Continue antibiotics, monitor for culture results. Hyperglycemia * Blood glucose 126. History of gestational diabetes. * Monitor glucose and A1c; assess for prediabetes or undiagnosed T2DM. Abnormal Liver function tests * Mild AST and ALP elevation. * Likely reactive to cholecystitis. Continue to trend; monitor for signs of cholestasis. Obesity 1. Acute Cholecystitis * Admit to inpatient medical-surgical floor * NPO, IV fluids (NS/LR maintenance) * Continue Zosyn IV q8h * Pain control: IV acetaminophen or morphine PRN * Surgical consult for laparoscopic cholecystectomy * Monitor vitals, WBC, LFTs, and bilirubin trend * If worsening or concern for choledocholithiasis ? MRCP or HIDA scan 2. Urinary Tract Infection * Continue broad-spectrum antibiotics (adjust per culture) * Encourage oral hydration when transitioned to PO * Monitor for signs of systemic infection 3. Hyperglycemia / Pre-Diabetes * Monitor FSBG q6h while NPO * Check HbA1c 4. Elevated Liver Enzymes * Trend AST, ALT, ALP, total and direct bilirubin * If worsening, consider MRCP, viral hepatitis panel, and autoimmune workup Prophylaxis & Preventive Measures DVT Prophylaxis : SCDs in place * GI prophylaxis: Pantoprazole 40 mg IV daily (NPO status + stress ulcer risk) * Fall precautions * test: Urine hCG Disposition Admit to inpatient Med-Surg unit for IV antibiotics, surgical planning, and continued evaluation. Attending Discussion Case discussed in detail with the attending physician, including the clinical presentation, diagnostic workup, and comprehensive management plan. The patient was present for the discussion and demonstrated understanding of her condition and the proposed plan. Patient verbally consented to hospital admission and agreed to the outlined evaluation and treatment strategies, including imaging, labs, medication initiation, specialist consultations, and supportive care. Plan discussed with: Patient My Orders Orders - ISAMAR GREENWOOD RESIDENT Procedure Category Date Status Time Admit ADMIT 08/26/24 Transmitted 04:39 Code Status CODE 08/26/24 Transmitted 04:39 Vital Signs [facility] 08/26/24 Transmitted 04:39 Review Orders With [facility] 08/26/24 Transmitted Adm. 04:39 Encourage Activity As [facility] 08/26/24 Transmitted Tolerate 04:39 Npo (Nothing By DIET 08/26/24 Transmitted Mouth) Diet Breakfast Acetaminophen Tablet [facility] 08/26/24 Transmitted (Tylenol Tablet) 04:45 Notify Of Changes [facility] 08/26/24 Transmitted From Base 04:39 Advance Directive [facility] 08/26/24 Transmitted 04:39 Urinalysis LAB 08/26/24 Transmitted 04:39 Complete Blood Count LAB 08/26/24 Transmitted 04:39 Blood Culture [facility] 08/26/24 Transmitted 04:39 Urine Bacterial [facility]IR[facility] 08/26/24 Transmitted Culture 04:39 Patient Condition ORDERS 08/26/24 Transmitted 04:39 Allergies SOFIA 08/26/24 Transmitted 04:39 Hydrocodone-Acet PHA 08/26/24 Transmitted 5/325mg Tab ([place] 04:45 Ondansetron Hcl PHA 08/26/24 Transmitted (Zofran) 04:45 Drug Screen LAB 08/26/24 Transmitted 04:39 Hemoglobin A1c LAB 08/26/24 Transmitted 04:39 Sequential SOFIA 08/26/24 Transmitted Compression Device Test, Urine LAB 08/26/24 Transmitted 04:39 * Surgical Consult CONS 08/26/24 Transmitted Zosyn Extended PHA 08/26/24 Transmitted Infusion 06:00 Comprehensive LAB 08/26/24 Transmitted Metabolic Panel 04:39 Pantoprazole PHA 08/26/24 Transmitted (Protonix) 04:45 Date of Service: Aug 26, 2024 Billing Provider: LUPE SANCHEZ MD Common Visit Codes: [id number] INP/OBS CARE (HIGH) Secondary Visit Codes: [id number] CARE PLAN 30 MINUTES ISAMAR GREENWOOD RESIDENT Aug 26, 2024 05:16
[2024-08-26] MEDS: PANTOPRAZOLE 40 MG/10 ML VIAL INJ IV ONE (06:05)
[2024-08-26 06:42] VITALS: BP 122/75; PULSE 56; RESP 16; TEMP 98.1; O2SAT 100
[2024-08-26 06:50] LABS: Hematocrit 44.3 % (36.0-46.0); Hemoglobin 15.1 g/dL (12.2-16.2); Mean Corpuscular Hemoglobin 29.6 pg (28.0-32.0); Mean Corpuscular Volume 86.7 fL (80.0-100.0); Nucleated Red Blood Cells % 0.1 %
[2024-08-26 07:09] LABS: Anion Gap 8 (5-15); BUN/Creatinine Ratio 15.6 (10.0-20.0); Blood Urea Nitrogen 10 mg/dL (9-23); Calcium 9.7 mg/dL (8.7-10.4); Carbon Dioxide 26 mmol/L (20-31); Chloride 106 mmol/L (98-107); Potassium 3.6 mmol/L (3.5-5.1); Sodium 140 mmol/L (136-145); Total Protein 8.1 g/dL (5.7-8.2)
[2024-08-26 07:10] LABS: Alanine Aminotransferase 486 U/L (7-40); Albumin 5.0 g/dL (3.2-4.8); Alkaline Phosphatase 143 U/L (46-116); Bilirubin, Total 1.0 mg/dL (0.2-1.0); Glucose 111 mg/dL (74-106)
[2024-08-26 08:00] VITALS: PULSE 60
[2024-08-26 08:43] VITALS: BP 110/74; PULSE 60; RESP 15; TEMP 97.1; O2SAT 99
--- NOTE | 2024-08-26 09:24 | DVHINCON2 ---
Date of service: Aug 26, 2024 History of Present Illness 28-year-old morbidly obese female complaining of right upper quadrant abdominal pain that began yesterday associated with nausea and vomiting. Patient denies any fevers or chills. Past Medical History Morbid obesity Past Surgical History Three C-sections Family History: Diabetes mellitus G8 MOTHER G8 FATHER Hypertension G8 MOTHER G8 FATHER Family History Noncontributory Social History Denies alcohol, tobacco, IV drug use Allergies: Coded Allergies: NO KNOWN ALLERGIES (Unverified , 11/27/22) Home Meds Active Scripts Cephalexin Monohydrate (Cephalexin) 500 Mg Cap, 1 CAP PO QID for 10 Days, #40 CAP Prov:NEGIN BRITO Q EXCHANGE CLERK 04/16/23 Hydrocodone-Acetaminophen (Hydrocodone Bitartrate/AC 5-325 mg) 1 Tab Tab, 1 TAB PO Q6HPRN PRN for 6 Days, #24 TAB Prov:DANAE BARNETT DO 12/12/22 Docusate Sodium (Colace) 100 Mg Cap, 1 CAP PO BID, #60 CAP 2 Refills Prov:DANAE BARNETT DO 12/12/22 Cephalexin Monohydrate (Cephalexin) 500 Mg Cap, 500 MG PO QID for 7 Days, CAP Prov:DANAE BARNETT DO 12/12/22 Reported Medications Vit W/ Ferrous Fumara ( One Daily) Daily Tab, 1 TAB PO DAILY, #30 TAB 11 Refills 12/04/22 Nitrofurantoin (Nitrofurantoin) 100 Mg Cap, 100 MG PO BID for 10 Days, CAP 11/27/22 Current Medications Current Medications Medications (Trade) Dose Ordered Sig/[place] Route PRN Reason Start Time Stop Time Status Last Admin Acetaminophen (Tylenol Tablet) 650 mg Q6HP PRN PO PAIN SCALE 1-3 OR TEMP>100.4 08/26/24 04:45 Acetaminophen/ Hydrocodone Bitart ([place] 5/325MG Tab) 1 tab Q4HP PRN PO MODERATE PAIN (4-6 PAIN SCALE) 08/26/24 04:45 08/26/24 05:06 DC Ondansetron HCl (Zofran) 4 mg Q4HP PRN IV NAUSEA / VOMITING 08/26/24 04:45 Piperacillin Sod/ Tazobactam Sod 100 ml @ 100 mls/hr Q6HR IV 08/26/24 12:00 Acetaminophen/ Hydrocodone Bitart ([place] 5/325MG Tab) 1 tab Q6HPRN PRN PO MODERATE PAIN (4-6 PAIN SCALE) 08/26/24 05:30 Vital Signs Vital Signs Date Time Temp Pulse Resp B/P (MAP) Pulse Ox O2 Delivery O2 Flow Rate FiO2 08/26/24 08:43 97.1 60 15 110/74 (86) 99 97.1 08/26/24 06:42 Room Air* 0 21 Physical Exam GEN: Obese female in no acute distress. Alert. HEENT: Normocephalic atraumatic. Moist mucous membranes. Anicteric sclerae. CV: RRR Respiratory: CTAB ABD: Obese abdomen with a well-healed incisional scar from her previous C- sections. Localized right upper quadrant tenderness to palpation with localized guarding. Nondistended. Abdominal ultrasound: Stone filled and distended gallbladder wall thickening up to 5.6 mm. Common bile duct slightly dilated up to 7 mm. Labs/Diagnostic Data Labs Test 08/26/24 05:14 08/25/24 23:49 08/25/24 23:13 Range/Units White Blood Count 6.1 # 4.4-10.8 10^3/uL Red Blood Count 5.12 4.0-5.20 10^6/uL Hemoglobin 15.1 12.2-16.2 g/dL Hematocrit 44.3 36.0-46.0 % Mean Corpuscular Volume 86.7 80.0-100.0 fL Mean Corpuscular Hemoglobin 29.6 28.0-32.0 pg Mean Corpuscular Hemoglobin Concent 34.1 32.0-36.0 g/dL Red Cell Distribution Width 13.1 11.8-14.3 % Platelet Count 214 140-450 10^3/uL Mean Platelet Volume 10.0 6.9-10.8 fL Neutrophils (%) (Auto) 63.1 37.0-80.0 % Lymphocytes (%) (Auto) 29.5 10.0-50.0 % Monocytes (%) (Auto) 6.1 0.0-12.0 % Eosinophils (%) (Auto) 1.1 0.0-7.0 % Basophils (%) (Auto) 0.2 0.0-2.0 % Neutrophils # (Auto) 3.9 1.6-8.6 10 ^3/uL Lymphocytes # (Auto) 1.8 0.4-5.4 10 ^3/uL Monocytes # (Auto) 0.4 0-1.3 10 ^3/uL Eosinophils # (Auto) 0.1 0-0.8 10 ^3/uL Basophils # (Auto) 0 0-0.2 10 ^3/uL Nucleated Red Blood Cells 0.1 % Sodium Level 140 136-145 mmol/L Potassium Level 3.6 3.5-5.1 mmol/L Chloride Level 106 98-107 mmol/L Carbon Dioxide Level 26 20-31 mmol/L Anion Gap 8 5-15 Blood Urea Nitrogen 10 9-23 mg/dL Creatinine 0.64 0.550-1.02 mg/dL Glomerular Filtration Rate Calc 122 >90 mL/min BUN/Creatinine Ratio 15.6 10.0-20.0 Serum Glucose 111 H 74-106 mg/dL Hemoglobin A1c 5.7 <5.7 % A1C Calcium Level 9.7 8.7-10.4 mg/dL Total Bilirubin 1.0 0.2-1.0 mg/dL Aspartate Amino Transferase (AST) 729 H 13-40 U/L Alanine Aminotransferase (ALT) 486 H 7-40 U/L Alkaline Phosphatase 143 H 46-116 U/L Total Protein 8.1 5.7-8.2 g/dL Albumin 5.0 H 3.2-4.8 g/dL Urine Color Light-yellow Yellow Urine Clarity Clear Clear Urine pH 6.0 5.0-9.0 Urine Specific [place] 1.023 1.001-1.035 Urine Protein Negative Negative Urine Ketones Negative Negative Urine Blood Negative Negative /uL Urine Nitrite Negative Negative Urine Bilirubin Negative Negative Urine Urobilinogen Normal Negative mg/dL Urine Leukocyte Esterase 2+ Negative /uL Urine RBC 1 0 - 4 /hpf Urine Microscopic WBC 3 0-5 /HPF Urine Squamous Epithelial Cells Few <5 /hpf Urine Bacteria None seen None Seen /hpf Urine Mucus Few None Seen Urine Glucose Normal Normal mg/dL Lipase 34 12-53 U/L Assessment 1. Cholecystitis with possible choledocholithiasis due to slightly dilated common bile duct with sudden increase in liver function test. Plan/Recommendation 1. HIDA scan 2. MRCP Plan discussed with: Patient CAREY BOWMAN MD Aug 26, 2024 09:24
[2024-08-26] MEDS: PIPERACILLIN-TAZOB 3.375GM 100 ML IV SCH (11:47)
[2024-08-26] MEDS: HYDROcodone-ACET 5/325MG TAB PO PRN (11:47)
[2024-08-26 13:00] VITALS: BP 113/70; PULSE 54; RESP 16; TEMP 97.7; O2SAT 98
[2024-08-26 16:57] VITALS: BP 113/72; PULSE 60; RESP 16; TEMP 97.2; O2SAT 100
--- NOTE | 2024-08-26 16:59 | DVH ---
MRI abdomen /MRCP HISTORY: dilated CBD with elevated LFTs COMPARISON: None PROCEDURE: Multiplanar multisequence MRI images were obtained of the abdomen without intravenous cont rast Additional MIPS were obtained of the biliary system. FINDINGS: Bile ducts: -Intrahepatic ducts: Non-dilated. -Extrahepatic ducts: Non-dilated. -Common bile duct: Non-dilated. Measures 0.7 cm. -Filling defects: No filling defects -Stricture: None. Gallbladder: Cholelithiasis. Pancreas: Pancreatic duct: No ductal dilatation. Lesions: None. Liver: Signal intensity: Homogenous. Contour: Smooth. Size: Hepatomegaly, 21.3 cm. Lesions: No focal liver lesion. ADDITIONAL FINDINGS: Lung base: Normal. Pancreas: Normal. Spleen:Normal. Bowel: Normal. Adrenal glands:Normal. Kidneys and ureters:Normal. Lymph nodes:Normal. Peritoneum:Normal. Vessels: Normal. Abdominal wall: Normal. Bone: No aggressive bone lesions IMPRESSION: Cholelithiasis. No other secondary signs of cholecystitis. Common bile duct is mildly prominent measuring 0.7 cm. No appreciable obstructing stone or mass at th is time. ERCP could be considered to further evaluate if clinically indicated. Hepatomegaly.
[2024-08-26 21:00] VITALS: BP 100/70; PULSE 61; RESP 16; TEMP 98.4; O2SAT 99
[2024-08-27] VITALS (10 sets, daily range): BP systolic 101–135; BP diastolic 64–84; PULSE 52–119; RESP 16–66; TEMP 97.2–98.2; O2SAT 96–100
[2024-08-27 07:55] LABS: Hematocrit 40.7 % (36.0-46.0); Hemoglobin 14.0 g/dL (12.2-16.2); Mean Corpuscular Hemoglobin 30.0 pg (28.0-32.0); Mean Corpuscular Volume 87.2 fL (80.0-100.0); Nucleated Red Blood Cells % 0.1 %
[2024-08-27 08:09] LABS: Albumin 4.1 g/dL (3.2-4.8); Alkaline Phosphatase 111 U/L (46-116); Anion Gap 8 (5-15); BUN/Creatinine Ratio 9.6 (10.0-20.0); Calcium 9.2 mg/dL (8.7-10.4); Carbon Dioxide 26 mmol/L (20-31); Chloride 105 mmol/L (98-107); Potassium 3.8 mmol/L (3.5-5.1); Sodium 139 mmol/L (136-145); Total Protein 6.7 g/dL (5.7-8.2)
[2024-08-27 08:10] LABS: Urine Protein, UAD Negative (Negative)
[2024-08-27 08:12] LABS: Alanine Aminotransferase 272 U/L (7-40); Bilirubin, Total 1.3 mg/dL (0.2-1.0); Blood Urea Nitrogen 7 mg/dL (9-23); Glucose 132 mg/dL (74-106)
[2024-08-27 08:19] LABS: Opiate Scree,Urine Neg (NEGATIVE)
[2024-08-27 08:23] LABS: Amphetamine Screen, Urine Neg (NEGATIVE); Barbiturate Scree,Urine Neg (NEGATIVE); Benzodiazephine Screen, Urine Neg (NEGATIVE); Cannabinoid Screen, Urine Neg (NEGATIVE); Cocaine Screen, Urine Neg (NEGATIVE); Phencyclidine Screen, Urine Neg (NEGATIVE)
[2024-08-27 08:31] LABS: INR 1.05 (0.9-1.15); Partial Thromboplastin Time 27.4 SEC (24.5-34.5); Prothrombin Time 11.1 sec (9.3-11.8)
[2024-08-27] MEDS: Lidocaine/Epinephrine 1%-1:100,000 30ML VL ONE (12:50)
[2024-08-27] MEDS ORDERED: MORPHINE SULFATE 4 MG/ML SYR/VIAL IV PRN (13:00)
[2024-08-27] MEDS: METOCLOPRAMIDE HCL 5MG/ml INJ 2ml VIAL IV ONE (13:00)
[2024-08-27] MEDS: KETOROLAC TROMETH 30 MG/ML 1ML VIAL IV ONE (13:00)
[2024-08-27] MEDS ORDERED: HYDROmorphone HCL 2 MG/ML VL/or syr IV PRN (13:00)
[2024-08-27] MEDS ORDERED: MORPHINE SULFATE INJ 2 MG/ml SYRG IV PRN (13:00)
[2024-08-27] MEDS ORDERED: ROCURONIUM 10MG/ML 10ML VIAL IV ONE (13:42)
[2024-08-27] MEDS ORDERED: PROPOFOL 10 MG/ML 20 ML IV ONE (13:42)
[2024-08-27] MEDS ORDERED: SUGAMMADEX 200mg/2ml Vial (100MG/ML) IV ONE (13:42)
[2024-08-27] MEDS ORDERED: MIDAZOLAM HCL 2MG/2ML 2ml VIAL (1mg/ml) ONE (13:42)
[2024-08-27] MEDS ORDERED: fentaNYL CITRATE 100 MCG/2 ML VL ONE (13:42)
[2024-08-27] MEDS ORDERED: SODIUM CHLORIDE LOCK 10 ML ONE (13:42)
[2024-08-27] MEDS ORDERED: KETAMINE 50mg/ML 1ml syringe ONE (13:42)
[2024-08-27] MEDS ORDERED: ONDANSETRON HCL 4 MG/2 ML VIAL ONE (13:42)
[2024-08-27] MEDS ORDERED: LIDOCAINE 2% TOPICAL JELLY 5 ML URJT TOP ONE (13:44)
[2024-08-27] MEDS ORDERED: HYDROmorphone HCL 2 MG/ML VL/or syr ONE (13:44)
[2024-08-27] MEDS ORDERED: LIDOCAINE 1% (LOCAL ANESTH.) PF 5ml SDV ONE (13:44)
--- NOTE | 2024-08-27 14:35 | DVHPN2 ---
Reviewed: Care Plan, H&P, Labs, Medications, Previous Orders, Radiology Changes from previous H/P or p: No Changes General: Per HPI Cardiovascular: No Chest Pain, No Palpitations, No Orthopnea, No Paroxysmal Noc. Dyspnea, No Edema, No Lt Headedness, No Other Respiratory: No Cough, No Dry, No Shortness of breath, No SOB with excertion, No Wheezing, No Hemoptysis, No Pleuritic Pain, No Sputum, No Other Gastrointestinal: No Nausea, No Vomiting, No Abdominal Pain, No Diarrhea, No Constipation, No Melena, No Hematochezia, No Other Genitourinary: No Dysuria, No Frequency, No Incontinence, No Hematuria, No Retention, No Other Musculoskeletal: No other, No neck pain, No shoulder pain, No arm pain, No back pain, No hand pain, No leg pain, No foot pain Skin: No Rash, No Lesions, No Jaundice, No Bruising, No Other Objective Vitals Vital Signs Date Time Temp Pulse Resp B/P (MAP) Pulse Ox O2 Delivery O2 Flow Rate FiO2 08/27/24 13:00 97.9 64 16 111/70 (84) 97 97.9 08/27/24 08:00 Room Air* 0 21 Intake/Output Intake and Output 08/27/24 06:59 Intake Total 600 ml Balance 600 ml Intake Oral 300 ml IV Total 300 ml # Voids 3 # Bowel Movements 1 General Appearance: Alert, Oriented X3, Cooperative, No acute distress HEENT: Atraumatic Abdomen: Normal bowel sounds, Soft Neuro: Normal speech Medications Current Medications Medications Dose Ordered Sig/[place] Route Start Time Stop Time Status Last Admin Dose Admin Acetaminophen 650 mg Q6HP PRN PO 08/26/24 04:45 Ondansetron HCl 4 mg Q4HP PRN IV 08/26/24 04:45 Piperacillin Sod/ Tazobactam Sod 100 ml @ 100 mls/hr Q6HR IV 08/26/24 12:00 08/27/24 05:01 100 MLS/HR Acetaminophen/ Hydrocodone Bitart 1 tab Q6HPRN PRN PO 08/26/24 05:30 08/26/24 11:47 1 TAB Morphine Sulfate 2 mg Q4H PRN IV 08/27/24 13:00 08/27/24 17:01 Morphine Sulfate 1 mg Q30M PRN IV 08/27/24 13:00 08/27/24 15:01 Laboratory Results Laboratory Tests 08/27/24 06:12 Chemistry Test 08/27/24 06:12 Albumin 4.1 g/dL (3.2-4.8) Calcium Level 9.2 mg/dL (8.7-10.4) Total Protein 6.7 g/dL (5.7-8.2) Coagulation Test 08/27/24 06:12 Prothrombin Time 11.1 sec (9.3-11.8) Prothrombin Time INR 1.05 (0.9-1.15) Activated Partial Thromboplast Time 27.4 SEC (24.5-34.5) LFT Test 08/27/24 06:12 Alanine Aminotransferase (ALT) 272 U/L (7-40) H Alkaline Phosphatase 111 U/L (46-116) Aspartate Amino Transferase (AST) 102 U/L (13-40) H Total Bilirubin 1.3 mg/dL (0.2-1.0) H Urinalysis Test 08/25/24 23:49 08/27/24 06:55 Urine Mucus Few (None Seen) Urine Color Light-yellow (Yellow) Urine Clarity Turbid (Clear) H Urine pH 6.0 (5.0-9.0) Urine Specific [place] 1.018 (1.001-1.035) Urine Protein Negative (Negative) Urine Ketones Negative (Negative) Urine Blood Negative /uL (Negative) Urine Nitrite Negative (Negative) Urine Bilirubin Negative (Negative) Urine Urobilinogen Normal mg/dL (Negative) Urine Leukocyte Esterase 3+ /uL (Negative) Urine RBC 2 /hpf (0 - 4) Urine Microscopic WBC 7 /HPF (0-5) H Urine Squamous Epithelial Cells Few /hpf (<5) Urine Bacteria None seen /hpf (None Seen) Urine Hyaline Casts Few /lpf (0 - 2) Urine Glucose Normal mg/dL (Normal) Urine Test Negative (Negative) Microbiology Microbiology Date/Time Source Procedure Growth Status 08/26/24 05:14 Blood Blood Culture - Preliminary NO GROWTH AFTER 24 HOURS OF INCUBATION. Resulted Labs and/or images reviewed: Labs reviewed by me, Image(s) reviewed by me Assessment/Plan Assessment/Plan Acute cholecystitis with cholelithiasis * Confirmed by RUQ ultrasound (GB wall thickening, stones, distension). * Clinical signs: RUQ pain, nausea, mild LFT elevations. * Rule-out choledocholithiasis pending further evaluation. * Requires IV antibiotics, NPO status, surgical consult for potential cholecystectomy. Urinary tract infection * UA positive for leukocyte esterase and WBCs. * No urinary symptoms, but subclinical UTI suspected. * Continue antibiotics, monitor for culture results. Hyperglycemia * Blood glucose 126. History of gestational diabetes. * Monitor glucose and A1c; assess for prediabetes or undiagnosed T2DM. Abnormal Liver function tests * Mild AST and ALP elevation. * Likely reactive to cholecystitis. Continue to trend; monitor for signs of cholestasis. Obesity 1. Acute Cholecystitis * Admit to inpatient medical-surgical floor * NPO, IV fluids (NS/LR maintenance) * Continue Zosyn IV q8h * Pain control: IV acetaminophen or morphine PRN * Surgical consult for laparoscopic cholecystectomy * Monitor vitals, WBC, LFTs, and bilirubin trend * If worsening or concern for choledocholithiasis ? MRCP or HIDA scan 2. Urinary Tract Infection * Continue broad-spectrum antibiotics (adjust per culture) * Encourage oral hydration when transitioned to PO * Monitor for signs of systemic infection 3. Hyperglycemia / Pre-Diabetes * Monitor FSBG q6h while NPO * Check HbA1c 4. Elevated Liver Enzymes * Trend AST, ALT, ALP, total and direct bilirubin * If worsening, consider MRCP, viral hepatitis panel, and autoimmune workup Prophylaxis & Preventive Measures DVT Prophylaxis : SCDs in place * GI prophylaxis: Pantoprazole 40 mg IV daily (NPO status + stress ulcer risk) * Fall precautions * test: Urine hCG Plan discussed with: Patient Date of Service: Aug 27, 2024 Billing Provider: KIRAN FLANAGAN DO Common Visit Codes: [id number] INP/OBS CARE(HIGH) KIRAN FLANAGAN DO Aug 27, 2024 14:35
--- NOTE | 2024-08-27 15:24 | DVHOP2 ---
Operative Report - 2 Report Details Date: 08/27/24 Preop Diagnosis: 1. Acute cholecystitis Postop Diagnosis: 1. Same Surgeon: Carey Wright MD Regional Account Director: None Anesthesiologist: Eddi Clayton CRNA Anesthesia: General, Local Drains: None Consent: The surgery and its risks including but not limited to infection, bleeding requiring possible blood transfusion with the risk of hepatitis or HIV infection, possible open surgery, possible cystic duct leak or retained common bile duct stone requiring further intervention such as an ERCP, possible [place] operative [place] were explained to the patient. All questions were answered to her satisfaction. She expressed verbal understanding and wished to proceed with the surgery. Complications: None Estimated Blood Loss: 20 mL Fluids: 800 mL Name of Procedure Performed Laparoscopic cholecystectomy Procedure Details Procedure Details: After induction of general anesthesia, patient's abdomen was prepped and draped in standard surgical fashion. A small supraumbilical incision was made and this incision was taken through the abdominal wall down to the fascia which was opened sharply. Peritoneum was then bluntly divided gaining access to the intra-abdominal cavity. Interrupted 0 Vicryl sutures were placed through the fascial incision and using an open technique, Danny trocar was introduced and secured using the Vicryl sutures. Abdomen was then insufflated to 15 mmHg and camera was inserted. Visual examination of the intestine under the fascial incision appeared normal without injury. Under direct visualization a 5 mm bladeless trocar was placed in the epigastric region and two additional 5 mm bladeless trocars were placed in the right upper quadrant all under direct visualization. Examination of the right upper quadrant revealed a very distended and large gallbladder. An endo needle was used to decompress the gallbladder with bilious fluid aspirated from the gallbladder lumen. Once the gallbladder was decompressed it was grasped and retracted in a cephalad direction. Infundibulum was retracted laterally and careful blunt dissection was performed to identify the cystic duct which appeared normal in size. This was clipped and divided using Endoclips without complication. The cystic artery was located just above the cystic duct and this was clipped and divided using Endoclips without complication. Gallbladder was then removed from the liver bed using electrocautery. There was some bile spillage but no stones were lost. Gallbladder was then removed from the abdominal cavity using an endo pouch bag and sent off the surgical field. Abdomen was then re-insufflated. Hemostasis in the liver bed was achieved using electrocautery. Right upper quadrant was then well irrigated until fluid was clear. Trocars were then removed under direct visualization as the abdomen was deflated. Additional interrupted 0 Vicryl sutures were placed through the supraumbilical fascial incision and all sutures were tied down closing off the supraumbilical fascia. Surgical sites were irrigated injected with 20 mL of 1% lidocaine with epinephrine. Skin incisions were closed using shireen. Surgical sites were cleaned and dried and dressings were applied. Sponge, needle, instrument count at the end of the case were reported to be correct by the nursing staff. The patient tolerated the procedure well. At the time of dictation he is being awakened from general anesthesia. Specimen: Gallbladder Condition Stable Disposition Still a Patient CAREY WRIGHT MD Aug 27, 2024 15:24
[2024-08-27] MEDS: SODIUM CHLORIDE 0.9% 1,000 ML IV SCH (15:30)
[2024-08-27] MEDS: HYDROmorphone HCL 2 MG/ML VL/or syr IV PRN (16:05)
[2024-08-27] MEDS: HYDROmorphone HCL 2 MG/ML VL/or syr ONE (16:05)
[2024-08-28 01:00] VITALS: BP 100/62; PULSE 78; RESP 16; TEMP 98.1; O2SAT 96
[2024-08-28 05:00] VITALS: BP 109/70; PULSE 73; RESP 18; TEMP 98.3; O2SAT 98
[2024-08-28 07:29] LABS: Hematocrit 40.0 % (36.0-46.0); Hemoglobin 13.8 g/dL (12.2-16.2); Mean Corpuscular Hemoglobin 30.1 pg (28.0-32.0); Mean Corpuscular Volume 87.2 fL (80.0-100.0); Nucleated Red Blood Cells % 0.0 %
[2024-08-28 07:44] LABS: Alanine Aminotransferase 190 U/L (7-40); Alkaline Phosphatase 105 U/L (46-116); Anion Gap 11 (5-15); BUN/Creatinine Ratio 7.8 (10.0-20.0); Blood Urea Nitrogen 5 mg/dL (9-23); Calcium 9.4 mg/dL (8.7-10.4); Carbon Dioxide 23 mmol/L (20-31); Chloride 106 mmol/L (98-107); Glucose 143 mg/dL (74-106); Potassium 4.1 mmol/L (3.5-5.1); Sodium 140 mmol/L (136-145); Total Protein 7.0 g/dL (5.7-8.2)
[2024-08-28 07:45] LABS: Albumin 4.3 g/dL (3.2-4.8); Bilirubin, Total 0.7 mg/dL (0.2-1.0)
[2024-08-28 08:00] VITALS: PULSE 68; RESP 16; O2SAT 96
--- NOTE | 2024-08-28 08:49 | DVHPN2 ---
Progress Note - Dictate Date Seen: Aug 28, 2024 Medical Necessity Reason Pt with a Central, PICC or Fol: No Subjective E: no major events o/n. no complaints. pavan po well. vital signs Vital Sign Date Time Temp Pulse Resp B/P (MAP) Pulse Ox O2 Delivery O2 Flow Rate FiO2 08/28/24 05:00 98.3 73 18 109/70 (83) 98 98.3 08/27/24 20:00 Room Air* 0 21 Total Intake and Output 08/27/24 08/27/24 08/28/24 15:00 23:00 07:00 Intake Total 200 ml 0 ml 740 ml Output Total 1300 ml Balance 200 ml -1300 ml 740 ml medications Current Medications Medications Dose Ordered Sig/[place] Route Start Time Stop Time Status Last Admin Dose Admin Acetaminophen 650 mg Q6HP PRN PO 08/26/24 04:45 Ondansetron HCl 4 mg Q4HP PRN IV 08/26/24 04:45 Piperacillin Sod/ Tazobactam Sod 100 ml @ 100 mls/hr Q6HR IV 08/26/24 12:00 08/28/24 00:16 100 MLS/HR Acetaminophen/ Hydrocodone Bitart 1 tab Q6HPRN PRN PO 08/26/24 05:30 08/27/24 23:10 1 TAB Sodium Chloride 1,000 ml @ 75 mls/hr [id number] IV 08/27/24 15:30 08/27/24 15:30 75 MLS/HR objective GEN: NAD ABD: surgical dressings clean and dry. laboratory and microbiology Laboratory Tests 08/28/24 05:42 Test 08/28/24 05:42 Range/Units Serum Glucose 143 H 74-106 mg/dL Assessment/Plan A: 1. s/p lap cholecystectomy POD #1 doing well. P: 1. stable for DC from surgery POV. 2. remove bandages tomorrow and shower. ok to get incisions wet tomorrow. 3. f/u next week in clinic. call [phone] for appt. Plan discussed with: Patient CAREY BOWMAN MD Aug 28, 2024 08:49
[2024-08-28 09:00] VITALS: BP 98/59; PULSE 68; RESP 17; TEMP 97.8; O2SAT 98
[2024-08-28 13:00] VITALS: BP 106/53; PULSE 70; RESP 17; TEMP 98.3; O2SAT 97
[2024-08-28] MEDS ORDERED: CEPH250C PO (14:19)
[2024-08-28] MEDS ORDERED: NAPR-746 PO (14:19)
--- NOTE | 2024-08-28 14:21 | DVHDS2 ---
Discharge Summary Date of Admission Aug 26, 2024 at 04:39 Date of Discharge: Aug 28, 2024 Labs/Diagnostic Data: Laboratory Results Test 08/28/24 05:42 08/27/24 06:55 08/27/24 06:12 08/26/24 05:14 White Blood Count 8.4 10^3/uL (4.4-10.8) Red Blood Count 4.59 10^6/uL (4.0-5.20) Hemoglobin 13.8 g/dL (12.2-16.2) Hematocrit 40.0 % (36.0-46.0) Mean Corpuscular Volume 87.2 fL (80.0-100.0) Mean Corpuscular Hemoglobin 30.1 pg (28.0-32.0) Mean Corpuscular Hemoglobin Concent 34.5 g/dL (32.0-36.0) Red Cell Distribution Width 12.5 % (11.8-14.3) Platelet Count 202 10^3/uL (140-450) Mean Platelet Volume 10.0 fL (6.9-10.8) Neutrophils (%) (Auto) 84.8 % (37.0-80.0) Lymphocytes (%) (Auto) 11.7 % (10.0-50.0) Monocytes (%) (Auto) 3.4 % (0.0-12.0) Eosinophils (%) (Auto) 0.0 % (0.0-7.0) Basophils (%) (Auto) 0.1 % (0.0-2.0) Neutrophils # (Auto) 7.1 10 ^3/uL (1.6-8.6) Lymphocytes # (Auto) 1.0 10 ^3/uL (0.4-5.4) Monocytes # (Auto) 0.3 10 ^3/uL (0-1.3) Eosinophils # (Auto) 0 10 ^3/uL (0-0.8) Basophils # (Auto) 0 10 ^3/uL (0-0.2) Nucleated Red Blood Cells 0.0 % Sodium Level 140 mmol/L (136-145) Potassium Level 4.1 mmol/L (3.5-5.1) Chloride Level 106 mmol/L (98-107) Carbon Dioxide Level 23 mmol/L (20-31) Anion Gap 11 (5-15) Blood Urea Nitrogen 5 mg/dL (9-23) Creatinine 0.64 mg/dL (0.550-1.02) Glomerular Filtration Rate Calc 122 mL/min (>90) BUN/Creatinine Ratio 7.8 (10.0-20.0) Serum Glucose 143 mg/dL (74-106) Calcium Level 9.4 mg/dL (8.7-10.4) Total Bilirubin 0.7 mg/dL (0.2-1.0) Aspartate Amino Transferase (AST) 44 U/L (13-40) Alanine Aminotransferase (ALT) 190 U/L (7-40) Alkaline Phosphatase 105 U/L (46-116) Total Protein 7.0 g/dL (5.7-8.2) Albumin 4.3 g/dL (3.2-4.8) Urine Color Light-yellow (Yellow) Urine Clarity Turbid (Clear) Urine pH 6.0 (5.0-9.0) Urine Specific [place] 1.018 (1.001-1.035) Urine Protein Negative (Negative) Urine Ketones Negative (Negative) Urine Blood Negative /uL (Negative) Urine Nitrite Negative (Negative) Urine Bilirubin Negative (Negative) Urine Urobilinogen Normal mg/dL (Negative) Urine Leukocyte Esterase 3+ /uL (Negative) Urine RBC 2 /hpf (0 - 4) Urine Microscopic WBC 7 /HPF (0-5) Urine Squamous Epithelial Cells Few /hpf (<5) Urine Bacteria None seen /hpf (None Seen) Urine Hyaline Casts Few /lpf (0 - 2) Urine Glucose Normal mg/dL (Normal) Urine Test Negative (Negative) Urine Opiates Screen Neg (NEGATIVE) Urine Fentanyl Screen Neg (NEGATIVE) Urine Barbiturates Screen Neg (NEGATIVE) Urine Phencyclidine Screen Neg (NEGATIVE) Urine Amphetamines Screen Neg (NEGATIVE) Urine Benzodiazepines Screen Neg (NEGATIVE) Urine Cocaine Screen Neg (NEGATIVE) Urine Cannabinoids Screen Neg (NEGATIVE) Prothrombin Time 11.1 sec (9.3-11.8) Prothrombin Time INR 1.05 (0.9-1.15) Activated Partial Thromboplast Time 27.4 SEC (24.5-34.5) Hemoglobin A1c 5.7 % A1C (<5.7) Test 08/25/24 23:49 08/25/24 23:13 Urine Mucus Few (None Seen) Lipase 34 U/L (12-53) Other Laboratory Tests 08/28/24 05:42 Brief Hx & Hospital Course: Acute cholecystitis with cholelithiasis * Confirmed by RUQ ultrasound (GB wall thickening, stones, distension). * Clinical signs: RUQ pain, nausea, mild LFT elevations. * Rule-out choledocholithiasis pending further evaluation. * Requires IV antibiotics, NPO status, surgical consult for potential cholecystectomy. Urinary tract infection * UA positive for leukocyte esterase and WBCs. * No urinary symptoms, but subclinical UTI suspected. * Continue antibiotics, monitor for culture results. Hyperglycemia * Blood glucose 126. History of gestational diabetes. * Monitor glucose and A1c; assess for prediabetes or undiagnosed T2DM. Abnormal Liver function tests * Mild AST and ALP elevation. * Likely reactive to cholecystitis. Continue to trend; monitor for signs of cholestasis. Obesity 1. Acute Cholecystitis * Admit to inpatient medical-surgical floor * NPO, IV fluids (NS/LR maintenance) * Continue Zosyn IV q8h * Pain control: IV acetaminophen or morphine PRN * Surgical consult for laparoscopic cholecystectomy * Monitor vitals, WBC, LFTs, and bilirubin trend * If worsening or concern for choledocholithiasis ? MRCP or HIDA scan 2. Urinary Tract Infection * Continue broad-spectrum antibiotics (adjust per culture) * Encourage oral hydration when transitioned to PO * Monitor for signs of systemic infection 3. Hyperglycemia / Pre-Diabetes * Monitor FSBG q6h while NPO * Check HbA1c 4. Elevated Liver Enzymes * Trend AST, ALT, ALP, total and direct bilirubin * If worsening, consider MRCP, viral hepatitis panel, and autoimmune workup Prophylaxis & Preventive Measures DVT Prophylaxis : SCDs in place * GI prophylaxis: Pantoprazole 40 mg IV daily (NPO status + stress ulcer risk) * Fall precautions * test: Urine hCG discharged to home with oral pain meds and abx (Keflex) x 5 days cleared by surgery to discharge Condition at Discharge: Fair Final Diagnosis/Problems List 1. Same as above Discharge Disposition: Home Discharge Instruct/Medications Diet: Cardiac 2g Na,low cholest Activity: No Restrictions, As Tolerated Scheduled Cephalexin (Keflex Capsule), 2 CAP PO BID Cephalexin Monohydrate (Cephalexin), 500 MG PO QID Cephalexin Monohydrate (Cephalexin), 1 CAP PO QID Docusate Sodium (Colace), 1 CAP PO BID Nitrofurantoin (Nitrofurantoin), 100 MG PO BID, (Reported) Vit W/ Ferrous Fumara ( One Daily), 1 TAB PO DAILY, (Reported) Scheduled PRN Hydrocodone-Acetaminophen (Hydrocodone Bitartrate/AC 5-325 mg), 1 TAB PO Q6HPRN PRN Naproxen (Naproxen), 500 MG PO TID PRN Discharge Statement: "Patient was advised to return to the ER or call 911 if any headaches, dizziness, shortness of breath, chest pain, abdominal pain, bleeding, fevers, or worsening of medical condition. Patient was counseled about treatment plan, medications, possible side effects, patientverbalized understanding. All questions were answered to the best of my ability. This discharge took greater then 30 minutes in planning, reviewing documentation, counseling the patient, and discussing with other team members." ASSESSMENT ASSESSMENT Assessment 1. Same Date of Service: Aug 28, 2024 Billing Provider: KIRAN FLANAGAN DO Common Visit Codes: 99364-CSG/OBS DISCH DAY >30min KIRAN FLANAGAN DO Aug 28, 2024 14:21
[2024-08-28 15:04] VITALS: BP 106/70; PULSE 68; RESP 20; TEMP 98.3; O2SAT 98
== END 2024-08-28 15:20 | disposition home or self-care (01) | DRG 263 ==
LOC: ER 22:34 → OVERFLOW 08-26 04:39 → CENTRAL 08-26 06:48
PROVIDERS: ADMIT Internal Medicine; ATTEND Internal Medicine
PROC: 0FT44ZZ Resection of Gallbladder, Percutaneous Endoscopic Approach (ICD-10-PCS; principal; 2024-08-27 14:25)
DX: K80.00 Calculus of gallbladder with acute cholecystitis without obstruction (principal); E66.01 Morbid (severe) obesity due to excess calories; N39.0 Urinary tract infection, site not specified; R73.9 Hyperglycemia, unspecified; Z68.36 Body mass index [BMI] 36.0-36.9, adult; R73.03 Prediabetes; Z98.891 History of uterine scar from previous surgery; Z86.32 Personal history of gestational diabetes; Z83.3 Family history of diabetes mellitus; Z82.49 Family history of ischemic heart disease and other diseases of the circulatory system; Z79.899 Other long term (current) drug therapy
CPT/HCPCS: 36415; 74181; 76705; 80053; 80307; 81001; 81025; 83036; 83690; 85025; 85610; 85730; 87040; 87086; 87088; G0378; J1100; J1885; J2250; J2405; J2470; J2543; J2704